=== PATIENT | female | born 1950 | race Two or more races ===

== ENCOUNTER 2017-09-04 16:24 | Inpatient (IN) | payer OTHER ==
[~2017-09-04] VITALS: Ht 157.5 cm; Wt 74.8 kg
[2017-09-04] MEDS ORDERED: SYNTHROID125 MCG (16:32)
[2017-09-04] MEDS ORDERED: COZAAR25 MG (16:32)
[2017-09-04] MEDS ORDERED: ZANTAC300 MG (16:32)
[2017-09-04] MEDS ORDERED: NAPROXEN500 MG (16:33)
[2017-09-09] MEDS ORDERED: AMOX-CLAV 875-1 EACH PO (09:24)
== END 2017-09-09 14:28 | disposition home or self-care (01) | DRG 603 ==
LOC: ER 16:24 → MEDJ 19:22 → SEC-K 19:22 → MEDJ 21:43
PROC: BW2GY0Z Computerized Tomography (CT Scan) of Pelvic Region using Other Contrast, Unenhanced and Enhanced (ICD-10-PCS; principal; 2017-09-06)
DX: L03.317 Cellulitis of buttock (principal); I10 Essential (primary) hypertension; E03.8 Other specified hypothyroidism; B96.6 Bacteroides fragilis [B. fragilis] as the cause of diseases classified elsewhere; B96.89 Other specified bacterial agents as the cause of diseases classified elsewhere

== ENCOUNTER 2018-07-20 22:11 | Emergency (ER) | payer OTHER ==
[~2018-07-20] VITALS: Ht 154.9 cm; Wt 73.5 kg
[~2018-07-20 22:11] MED LIST: AMOX-CLAV 875-1 EACH PO; COZAAR25 MG; NAPROXEN500 MG; SYNTHROID125 MCG; ZANTAC300 MG
[2018-07-20] MEDS ORDERED: ASPIR 8181 MG (22:25)
[2018-07-20] MEDS ORDERED: NEURONTIN600 MG (22:26)
[2018-07-21] MEDS ORDERED: NORFLEX100MG PO ×2 (07:19→07:26)
[2018-07-21] MEDS ORDERED: DICLOFENAC SODI50 MG PO (07:21)
[2018-07-21] MEDS ORDERED: PEPCID40 MG PO ×2 (07:22→07:26)
[2018-07-21] MEDS ORDERED: LEVSIN/SL0.125 MG SL ×2 (07:22→07:26)
[2018-07-21] MEDS ORDERED: DICLOFENAC POTA50 MG PO (07:26)
== END 2018-07-21 07:33 | disposition home or self-care (01) ==
LOC: ER 22:11
DX: S30.0XXA Contusion of lower back and pelvis, initial encounter (principal); R10.84 Generalized abdominal pain; W18.39XA Other fall on same level, initial encounter; Y93.89 Activity, other specified; Y92.89 Other specified places as the place of occurrence of the external cause; Y99.8 Other external cause status

== ENCOUNTER → 2024-08-18 | Emergency (ER) | payer OTHER ==
[~2024-08-18] VITALS: Ht 157.5 cm; Wt 68.0 kg
[~2024-08-18] MED LIST changes: +ASPIR 8181 MG; +CYMBALTA60 MG PO; +DICLOFENAC POTA50 MG PO; +DICLOFENAC SODI50 MG PO; +KETOROLAC TROMETHAMINE 15 MG VIAL IM STA; +KETOROLAC TROMETHAMINE 30 MG VIAL ONE; +LEVSIN/SL0.125 MG SL; +LIPITOR40 M1 PO; +LOSARTAN POTAS100 MG PO; +NEURONTIN600 MG; +NEURONTIN800 MG PO; +NORFLEX100MG PO; +ORPHENADRINE CITRATE 30 MG/ML AMPUL IM STA; +ORPHENADRINE CITRATE 30 MG/ML AMPUL ONE; +PEPCID40 MG PO; +PLAVIX75 MG PO; +SYNTHROID125 MCG PO; +TOPROL XL50 M1 PO
== END | disposition home or self-care (01) ==
LOC: ER 13:49
DX: M25.561 Pain in right knee (principal); I10 Essential (primary) hypertension; E03.9 Hypothyroidism, unspecified

== ENCOUNTER 2024-09-17 09:34 | Inpatient (IN) | payer OTHER ==
[~2024-09-17] VITALS: Ht 157.5 cm; Wt 70.8 kg
[~2024-09-17 09:34] MED LIST changes: -KETOROLAC TROMETHAMINE 15 MG VIAL IM STA; -KETOROLAC TROMETHAMINE 30 MG VIAL ONE; -ORPHENADRINE CITRATE 30 MG/ML AMPUL IM STA; -ORPHENADRINE CITRATE 30 MG/ML AMPUL ONE
--- NOTE | 2024-09-17 09:45 | NUR ---
SE RECIBE PTE ALERTA Y ORIENTADA X3. LA MISMA REFIERE ESTA EVACUANDO COLOR BRANDIE "AMILCAR" DESDE TIERNEY Y REFIERE JUANPABLO PRESENTADO EPISODIOS DE VOMITO. SE MIDEN S/V Y SE UBICA.
[2024-09-17] MEDS ORDERED: BARIUM SULFATE 450 ML ORAL.SUSP PO ONE (09:57)
[2024-09-17] MEDS ORDERED: 0.9 % SODIUM CHLORIDE 1,000 ML IV SCH ×2 (10:00→20:00)
--- NOTE | 2024-09-17 10:01 | NUR ---
LARISA BILLINGS ORIENTA SOBRE TX MEDICO A PTE Y LA MISMA REFIERE ACEPTAR. EJECUTA ORDENES MEDICAS A MOURA TOTALIDAD.
[2024-09-17 11:29] LABS: CALCIUM 8.9 mg/dL (8.5-10.1); CREATININE SERUM 0.59 mg/dL (0.55-1.02); GFR 99.91; POTASSIUM 4.94 mEq/L (3.5-5.1)
[2024-09-17 11:31] LABS: BASO % 0.7 % (0.1-1.2); EOS % 2.4 % (0.7-7.0); HEMATOCRIT 27.8 % (34.1-44.9); HEMOGLOBIN 8.9 g/dL (11.2-15.7); LYMPH # 1.36 (1.18-3.74); LYMPH % 16.2 % (19.3-53.1); MEAN CORPUSCULAR HEMOGLOBIN 27.2 pg (25.6-32.2); MONO # 0.55 (0.24-0.82); MONO % 6.6 % (4.7-12.5); NEUT # 6.15 (1.56-6.13); NEUT % 73.5 % (34.0-71.1); PLATELET COUNT 511 K/uL (163-369); RED BLOOD COUNT 3.27 M/uL (3.93-5.22); RED CELL DISTRIBUTION WIDTH 15.9 % (11.6-14.4)
[2024-09-17 13:22] LABS: URINE APPEARANCE Clear; URINE BILIRRUBIN Negative (NEGATIVE); URINE BLOOD NHT; URINE COLOR Yellow; URINE GLUCOSE Negative (NEGATIVE); URINE KETONE Negative (NEGATIVE); URINE LEUKOCYTE Negative; URINE NITRATE Negative; URINE PROTEIN Negative (NEGATIVE); URINE UROBILINOGEN 0.2 E.U./dl
[2024-09-17 13:26] LABS: URINE RBC 9.1 uL (0.0-20.8); URINE WBC 2.6 uL (0.0-23.2)
[2024-09-17 13:37] LABS: URINE BACTERIA 2.4 uL (0.0-1933); URINE CAST 0.44 uL (0.0-1.40); URINE EPITHELIAL CELLS 0.6 uL (0.0-38.8)
[2024-09-17] MEDS ORDERED: FAMOTIDINE/PF 20 MG in 0.9 % SODIUM CHLORIDE 8 ML IV PUSH STA (15:43)
[2024-09-17] MEDS ORDERED: FAMOTIDINE/PF 20 MG/2 ML VIAL ONE (15:48)
[2024-09-17] MEDS ORDERED: PANTOPRAZOLE SODIUM 80 MG in 0.9 % SODIUM CHLORIDE 100 ML IV SCH (20:00)
[2024-09-17] MEDS ORDERED: ONDANSETRON HCL 4 MG in 0.9 % SODIUM CHLORIDE 50 ML IV PRN (20:00)
[2024-09-17] MEDS ORDERED: GABAPENTIN 800 MG TABLET PO SCH (21:00)
[2024-09-17 21:12] VITALS: BP 118/63
[2024-09-17 22:23] LABS: ob POSITIVE (NEGATIVE)
[2024-09-17 22:25] LABS: COVID-19 AG NEGATIVE (NEGATIVE)
[2024-09-18 00:38] VITALS: BP 114/65; O2SAT 96
[2024-09-18] MEDS ORDERED: LEVOTHYROXINE SODIUM 125 MCG TABLET PO SCH (06:00)
[2024-09-18 07:00] VITALS: BP 116/65; O2SAT 99
[2024-09-18] MEDS ORDERED: METOPROLOL TARTRATE 50 MG TABLET PO SCH (09:00)
[2024-09-18] MEDS ORDERED: LOSARTAN POTASSIUM 100 MG TABLET PO SCH (09:00)
[2024-09-18] MEDS ORDERED: Duloxetine HCl 60 MG CAPSULE.DR PO SCH (09:00)
[2024-09-18] MEDS ORDERED: CLOPIDOGREL BISULFATE 75 MG TABLET PO SCH (09:00)
[2024-09-18 17:00] VITALS: BP 129/71; O2SAT 98
[2024-09-18] MEDS ORDERED: Cyanocobalamin/Mecobalamin 1 TAB.SL SL SCH (17:00)
[2024-09-18] MEDS ORDERED: ATORVASTATIN CALCIUM 40 MG TABLET PO SCH (17:00)
[2024-09-18] MEDS ORDERED: MULTIVIT INFUSN,ADULT 4,VIT K 10 ML VIAL IV SCH (17:00)
[2024-09-18] MEDS ORDERED: SOD FERRIC GLUC COMPLX/SUCROSE 62.5 MG in 0.9 % SODIUM CHLORIDE 50 ML IV SCH (17:00)
[2024-09-19 00:24] VITALS: BP 146/70; O2SAT 99
[2024-09-19 04:08] VITALS: BP 102/64; O2SAT 98
[2024-09-19 07:39] LABS: BASO % 0.8 % (0.1-1.2); EOS # 0.23 (0.04-0.54); EOS % 3.7 % (0.7-7.0); HEMATOCRIT 32.1 % (34.1-44.9); HEMOGLOBIN 10.8 g/dL (11.2-15.7); LYMPH # 1.33 (1.18-3.74); LYMPH % 21.2 % (19.3-53.1); MEAN CORPUSCULAR HEMOGLOBIN 27.9 pg (25.6-32.2); MONO # 0.52 (0.24-0.82); MONO % 8.3 % (4.7-12.5); NEUT # 4.11 (1.56-6.13); NEUT % 65.7 % (34.0-71.1); PLATELET COUNT 411 K/uL (163-369); RED BLOOD COUNT 3.87 M/uL (3.93-5.22); RED CELL DISTRIBUTION WIDTH 15.7 % (11.6-14.4)
[2024-09-19 07:57] LABS: INR 1.11; PARTIAL THROMBOPLASTIN TIME 30.7 SECONDS (22.0-34.0)
[2024-09-19 08:07] LABS: ALBUMIN 2.9 gm/dL (3.4-5.0); BILIRUBIN TOTAL 0.64 mg/dL (0.3-1.2); CALCIUM 8.3 mg/dL (8.5-10.1); CHOL HDL RATIO 3.1 (0-5.0); CREATININE SERUM 0.54 mg/dL (0.55-1.02); GFR 110.66; GLOBULINA 2.5 G/DL (2.4-3.5); POTASSIUM 4.16 mEq/L (3.5-5.1); TOTAL PROTEIN 5.4 gm/dL (6.4-8.2); TSH 1.69 uIU/mL (0.358-3.74)
[2024-09-19 09:13] VITALS: BP 133/72
[2024-09-19 15:00] VITALS: BP 140/75; O2SAT 98
[2024-09-20 01:42] VITALS: BP 131/82; O2SAT 100
[2024-09-20 09:09] VITALS: BP 118/77
[2024-09-20 15:00] VITALS: BP 147/78; O2SAT 94
[2024-09-21 01:28] VITALS: BP 157/77; O2SAT 92
[2024-09-21 07:00] LABS: BASO % 0.9 % (0.1-1.2); EOS # 0.23 (0.04-0.54); EOS % 3.3 % (0.7-7.0); HEMATOCRIT 32.3 % (34.1-44.9); HEMOGLOBIN 10.4 g/dL (11.2-15.7); LYMPH # 1.35 (1.18-3.74); LYMPH % 19.4 % (19.3-53.1); MEAN CORPUSCULAR HEMOGLOBIN 28.1 pg (25.6-32.2); MONO # 0.61 (0.24-0.82); MONO % 8.8 % (4.7-12.5); NEUT # 4.69 (1.56-6.13); NEUT % 67.2 % (34.0-71.1); PLATELET COUNT 434 K/uL (163-369); RED CELL DISTRIBUTION WIDTH 15.9 % (11.6-14.4)
[2024-09-21] MEDS ORDERED: SODIUM CL 0.9% 100 ML IV.SOLN IV ONE (07:30)
[2024-09-21 08:43] VITALS: BP 129/71; O2SAT 98
[2024-09-22 01:12] VITALS: BP 112/62
[2024-09-22 07:00] VITALS: BP 138/91
[2024-09-22] MEDS ORDERED: MIDAZOLAM HCL 2 MG/2 ML VIAL IV STA (10:27)
[2024-09-22] MEDS ORDERED: PROTONIX40 MG PO (12:25)
== END 2024-09-22 14:16 | disposition home or self-care (01) | DRG 379 ==
LOC: ER 09:41 → MEDI 20:08
PROVIDERS: Emergency Medicine; General Practice; ADMIT Internal Medicine; ATTEND Internal Medicine
PROC: BW21ZZZ Computerized Tomography (CT Scan) of Abdomen and Pelvis (ICD-10-PCS; 2024-09-17)
PROC: 30233N1 Transfusion of Nonautologous Red Blood Cells into Peripheral Vein, Percutaneous Approach (ICD-10-PCS; 2024-09-18)
PROC: 0DJ08ZZ Inspection of Upper Intestinal Tract, Via Natural or Artificial Opening Endoscopic (ICD-10-PCS; principal; 2024-09-22)
DX: K62.5 Hemorrhage of anus and rectum (principal); D64.9 Anemia, unspecified; I10 Essential (primary) hypertension; E03.9 Hypothyroidism, unspecified; R19.5 Other fecal abnormalities

== ENCOUNTER 2025-01-07 07:07 | Emergency (ER) | payer OTHER ==
[~2025-01-07] VITALS: Ht 154.9 cm; Wt 68.0 kg
[~2025-01-07 07:07] MED LIST changes: +PROTONIX40 MG PO
[2025-01-07 09:35] LABS: BASO % 0.7 % (0.1-1.2); EOS # 0.60 (0.04-0.54); EOS % 4.8 % (0.7-7.0); LYMPH # 1.41 (1.18-3.74); LYMPH % 11.2 % (19.3-53.1); MEAN PLATELET VOLUME 9.10 fl (9.4-12.4); MONO # 0.97 (0.24-0.82); MONO % 7.7 % (4.7-12.5); NEUT # 9.41 (1.56-6.13); NEUT % 75.1 % (34.0-71.1); RED CELL DISTRIBUTION WIDTH 12.9 % (11.6-14.4)
[2025-01-07] MEDS ORDERED: GUAIFENESIN/DEXTROMETHORPHAN 100MG/10ML BLIST.PACK PO ONE (10:00)
[2025-01-07 10:02] LABS: COVID-19 AG NEGATIVE (NEGATIVE)
[2025-01-07] MEDS ORDERED: AZITHROMYCIN500 MG PO (13:56)
[2025-01-07] MEDS ORDERED: GILTUSS COUGH-118 M1 PO (13:56)
[2025-01-07] MEDS ORDERED: ACETAMINOPHEN500 M1 PO (13:56)
== END 2025-01-07 14:00 | disposition home or self-care (01) ==
LOC: ER 07:07
PROVIDERS: Preventive Medicine Public Health & General Preventive Medicine
DX: J06.9 Acute upper respiratory infection, unspecified (principal); Z20.822 Contact with and (suspected) exposure to COVID-19; I10 Essential (primary) hypertension; E03.9 Hypothyroidism, unspecified

== ENCOUNTER → 2025-02-09 | Emergency (ER) | payer OTHER ==
[~2025-02-09] VITALS: Ht 157.5 cm; Wt 72.6 kg
[~2025-02-09] MED LIST changes: +ACETAMINOPHEN500 M1 PO; +AZITHROMYCIN500 MG PO; +COZAAR50 MG; +DEXAMETHASONE SODIUM PHOSPHATE 4 MG/ML VIAL IM STA; +DEXAMETHASONE SODIUM PHOSPHATE 4 MG/ML VIAL ONE; +DOLOGESIC 500-1 EACH PO; +GILTUSS COUGH-118 M1 PO; +KETOROLAC TROMETHAMINE 30 MG VIAL IM STA; +KETOROLAC TROMETHAMINE 30 MG VIAL ONE; +LYRICA150 MG
[2025-02-09 11:06] LABS: BASO % 0.8 % (0.1-1.2); EOS # 0.36 (0.04-0.54); EOS % 5.7 % (0.7-7.0); LYMPH # 1.03 (1.18-3.74); LYMPH % 16.4 % (19.3-53.1); MEAN PLATELET VOLUME 10.20 fl (9.4-12.4); MONO # 0.72 (0.24-0.82); MONO % 11.5 % (4.7-12.5); NEUT # 4.10 (1.56-6.13); NEUT % 65.3 % (34.0-71.1); RED CELL DISTRIBUTION WIDTH 12.5 % (11.6-14.4)
[2025-02-09 11:19] LABS: BUN CREA RATIO 34.0 (7.0-25.0); CREATININE SERUM 0.68 mg/dL (0.55-1.02); GFR 84.81; GLUCOSE FASTING 87.0 mg/dL (65-100); OSMOLALITY SERUM 290.0 MOSM/KG (275-295)
[2025-02-09 11:39] LABS: INR 1.04
[2025-02-09 15:20] VITALS: BP 130/74; O2SAT 97
== END | disposition home or self-care (01) ==
LOC: ER 08:57
PROVIDERS: General Practice
DX: M79.604 Pain in right leg (principal); I87.2 Venous insufficiency (chronic) (peripheral); I10 Essential (primary) hypertension; E03.9 Hypothyroidism, unspecified; M79.7 Fibromyalgia